=== PATIENT | male | born 1950 | race Caucasian/White ===

== ENCOUNTER 2022-05-29 09:30 | Emergency (ER) | payer MEDICARE, BC ==
[~2022-05-29] VITALS: Ht 170.2 cm; Wt 59.0 kg
[2022-05-29 12:11] VITALS: BP 150/75
--- NOTE | 2022-05-29 12:11 | NUR ---
Patient discharged to home in stable condition. Written and verbal after care instructions given. Patient verbalizes understanding of instructions. Stressed follow up or return to ER for worsening s/s. Pt walked out of ER w/ steady gait.
== END 2022-05-29 12:13 | disposition home or self-care (01) ==
LOC: ER 09:30
DX: S90.212A Contusion of left great toe with damage to nail, initial encounter (principal); W22.8XXA Striking against or struck by other objects, initial encounter; Y92.89 Other specified places as the place of occurrence of the external cause; I10 Essential (primary) hypertension; M79.675 Pain in left toe(s)
CPT/HCPCS: 73630; A4663

== ENCOUNTER 2022-12-13 09:58 | Emergency (ER) | payer MEDICARE, BC ==
[~2022-12-13] VITALS: Ht 172.7 cm; Wt 58.5 kg
[2022-12-13] MEDS ORDERED: NEOMY/BACITRA/POLYMYXIN B OINT UD PACKET TP ONE ×2 (10:30→10:42)
[2022-12-13 11:26] VITALS: BP 142/73; TEMP 98.2; O2SAT 98
== END 2022-12-13 11:27 | disposition home or self-care (01) ==
LOC: ER 10:04
DX: S63.613A Unspecified sprain of left middle finger, initial encounter (principal); S63.615A Unspecified sprain of left ring finger, initial encounter; I10 Essential (primary) hypertension; W01.0XXA Fall on same level from slipping, tripping and stumbling without subsequent striking against object, initial encounter; Y93.89 Activity, other specified; Y92.89 Other specified places as the place of occurrence of the external cause; Y99.8 Other external cause status
CPT/HCPCS: 73140; A4663

== ENCOUNTER 2024-04-22 10:20 | Emergency (ER) | payer MEDICARE, BC ==
[~2024-04-22] VITALS: Ht 167.6 cm; Wt 61.2 kg
[2024-04-22] MEDS ORDERED: DOCUSATE SODIUM 100 MG CAPSULE PO ONE (10:49)
[2024-04-22] MEDS: DOCUSATE SODIUM 100 MG/10 ML LIQUID UDC OT ONE (10:58)
[2024-04-22 13:03] VITALS: BP 115/88; O2SAT 98
== END 2024-04-22 13:04 | disposition home or self-care (01) ==
LOC: ER 10:20
DX: H61.21 Impacted cerumen, right ear (principal); I11.9 Hypertensive heart disease without heart failure; Z88.7 Allergy status to serum and vaccine
CPT/HCPCS: A4606; A4663